=== PATIENT | male | born 1960 | race Caucasian/White ===

== ENCOUNTER → 2018-10-24 | Outpatient (CLI) | payer BC ==
[2015-06-02 09:30] VITALS: BP 118/62
[~2018-10-24] MED LIST: IOHEXOL 240 MG/ML 50ML VIAL. PO ONE; IOHEXOL 300 MG/ML 100ML VIAL. IV ONE
--- NOTE | 2018-10-24 16:38 | KCIC ---
CT of the abdomen and pelvis with contrast 10/24/2018 INDICATION: Left lower quadrant pain 10-3 weeks. COMPARISON STUDY: CT of the abdomen and pelvis with IV contrast June 02, 2015 TECHNIQUE: Multidetector CT imaging of the abdomen and pelvis was performed following the administration of IV contrast. Liver, gallbladder, spleen, and pancreas are grossly unremarkable. The adrenal glands are grossly unremarkable. Mildly prominent left renal pelvis is noted. Nonspecific perinephric stranding noted bilaterally. The appearance is unchanged. No evidence of nephrolithiasis or hydronephrosis is seen. No evidence of bowel obstruction is identified. Possible mild rectal wall thickening. Evaluation is limited given decompressed state lack of contrast. Mild distal colitis/proctitis not excluded. No free fluid or free air is seen in the abdomen or pelvis. The bladder is mildly distended but otherwise unremarkable. No evidence of acute osseous abnormality is seen. Degenerative changes of the lumbar spine are noted. 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 Disc bulges at L3-4 and L4-5 also seen. IMPRESSION: 1. Possible mild rectal wall thickening. Evaluation is limited as described. Mild distal colitis/proctitis not excluded 2. No other acute intra-abdominal abnormality is seen 3. Chronic changes noted above CT DOSING PQRS STATEMENT: One or more of the following individualized dose reduction techniques were utilized for this examination: 1. Automated exposure control 2. Adjustment of the mA and/or kV according to patient size 3. Use of iterative reconstruction technique Electronically signed by: Tiago Headley MD (10/24/2018 4:35 PM) [id number]
== END | disposition home or self-care (01) ==
LOC: KCIC CT 14:45
PROVIDERS: ATTEND Family Medicine
DX: N32.89 Other specified disorders of bladder (principal); M47.816 Spondylosis without myelopathy or radiculopathy, lumbar region; M43.17 Spondylolisthesis, lumbosacral region; M51.26 Other intervertebral disc displacement, lumbar region
CPT/HCPCS: 74177; Q9966; Q9967